=== PATIENT | male | born 1945 | race Caucasian/White ===

== ENCOUNTER 2018-10-12 13:00 | Emergency (ER) | payer MEDICARE, OTHER ==
[2018-10-12 13:13] VITALS: RESP 18
--- NOTE | 2018-10-12 13:47 | ED ---
General Adult HPI - General Chief complaint: Extremity Injury, Lower Stated complaint: Ankle injury/pain Time Seen by Provider: 10/12/18 13:21 Source: patient, RN notes reviewed, Caregiver Mode of arrival: ambulatory Limitations: no limitations - History of Present Illness Initial comments: Patient 73-year-old male presents to the emergency room today with a chief complaint possible injury to the right ankle. Patient does have history of developmental delay. Patient unaware of any injury. The caregivers with him stated they did notice a bruise around the heel. States she's been complaining about some pain over the last week. Take ibuprofen for back pain. Patient has been ambulating. He doesn't pain to the ankle. He denies any other complaints. Patient denies any recent fever, chills, shortness of breath, chest pain, back pain, abdominal pain, nausea or vomiting, headaches or visual changes , or any other complaints. - Related Data Allergies Allergy/AdvReac Type Severity Reaction Status Date / Time No Known Allergies Allergy Verified 10/12/18 13:11 Review of Systems ROS Statement: Those systems with pertinent positive or pertinent negative responses have been documented in the HPI. ROS Other: All systems not noted in ROS Statement are negative. Past Medical History Additional Past Medical History / Comment(s): developmental delay History of Any Multi-Drug Resistant Organisms: None Reported Past Surgical History: No Surgical Hx Reported Past Psychological History: No Psychological Hx Reported Smoking Status: Never smoker Past Alcohol Use History: None Reported Past Drug Use History: None Reported General Exam - General Exam Comments Initial Comments: General: The patient is awake and alert, in no distress, and does not appear acutely ill. Neck: The neck is supple, there is no tenderness or JVD. Cardiovascular: There is a regular rate and rhythm. No murmur, rub or gallop is appreciated. Respiratory: Lungs are clear to auscultation, respirations are non-labored, breath sounds are equal. No wheezes, stridor, rales, or rhonchi. Musculoskeletal: Patient does have some mild swelling over the medial malleolus. No specific bony tenderness on exam. Pedal pulses 2+. Sensations intact. Neurological: A&O x 3. CN II-XII intact, There are no obvious motor or sensory deficits. Coordination appears grossly intact. Speech is normal. Skin: Skin is warm and dry and no rashes or lesions are noted. Psychiatric: Normal mood and affect. Limitations: no limitations Course Vital Signs 10/12/18 10/12/18 13:09 13:30 Temperature 97.9 F Pulse Rate 89 Respiratory 18 Rate Blood Pressure 200/90 173/73 O2 Sat by Pulse 100 Oximetry Medical Decision Making - Medical Decision Making Patient x-ray reviewed negative for any acute fracture dislocation. Results were discussed with the patient. He is advised ice elevate the affected area. There is some bruising. Full that the swelling may be a sprain. There is no redness. No increased warmth. No sign of infection. Sinus symptoms of concern were discussed with the patient and caregiver at bedside. They're advised to continue to watch area. Return if any symptoms increase worsen. Advised to continue with anti-inflammatories for pain. Disposition Clinical Impression: Ankle sprain Disposition: HOME SELF-CARE Condition: Good Instructions: Ankle Sprain (ED) Additional Instructions: Please continue to ice elevate the affected area at least 4 times a day for 20 minutes at a time. Please return to emergency room if the symptoms increase or worsen or for any other concerns. Is patient prescribed a controlled substance at d/c from ED?: No Referrals: Anurag Sigala DO [Primary Care Provider] - 1-2 days Time of Disposition: 14:42
--- NOTE | 2018-10-12 14:15 | XR ---
EXAMINATION TYPE: XR foot complete RT, XR ankle complete RT DATE OF EXAM: 10/12/2018 CLINICAL HISTORY: Right ankle and foot pain. No known injury. TECHNIQUE: Frontal, lateral and oblique images of the right ankle and foot are obtained. COMPARISON: None. FINDINGS: There is diffuse osseous demineralization. Mild degenerative changes of the distal interpha langeal joints are seen as well as of the first metatarsal phalangeal joint. Well-corticated osseous fragment on that medial malleolus is seen from prior injury on the foot frontal and oblique views. Sm all plantar enthesophyte is also seen. There is no acute fracture/dislocation evident in the right a nkle. The ankle mortise appears within normal limits. The overlying soft tissue appears unremarkabl e. There is no acute fracture or dislocation evident in the right foot. The joint spaces in the rig ht foot are preserved. Mild soft tissue swelling is seen of the ankle joint. IMPRESSION: Mild soft tissue swelling around the ankle joint with no acute fracture or dislocation in the right ankle or foot. Diffuse osseous demineralization and mild arthropathy of the distal interph alangeal joints are seen.
[2018-10-12 14:57] VITALS: BP 168/77; PULSE 64; TEMP 97.2
== END 2018-10-12 14:55 | disposition home or self-care (01) ==
LOC: EEVIPCON 13:00 → EC 13:00
DX: S93.401A Sprain of unspecified ligament of right ankle, initial encounter (principal)
CPT/HCPCS: 99283